=== PATIENT | male | born 1960 | race Caucasian/White ===

== ENCOUNTER 2016-12-16 12:43 | Emergency (ER) | payer SELFPAY ==
[~2016-12-16] VITALS: Ht 180.3 cm; Wt 59.0 kg
[~2016-12-16 12:43] MED LIST: VIST25CA PO
[2016-12-16 12:45] VITALS: BP 140/72; PULSE 120; RESP 24; TEMP 99.6; O2SAT 85
[2016-12-16 12:49] VITALS: BP 154/99; PULSE 120; RESP 20; TEMP 99.1; O2SAT 90
[2016-12-16 12:58] VITALS: BP 154/99; PULSE 111; RESP 18; O2SAT 91
[2016-12-16] MEDS ORDERED: SODIUM CHLOR 0.9% 1000 ML INJ 1,000 ML IV ONE (13:00)
[2016-12-16] MEDS ORDERED: RESP: ALBUTEROL 2.5 MG/IPRATROPIUM 0.5 MG NEB (SCH) NEB ONE (13:00)
[2016-12-16 13:11] LABS: AUTOMATED NEUTROPHIL # 20.7 TH/MM3 (1.8-7.7); BASOPHIL # 0.1 TH/MM3 (0-0.2); BASOPHIL % 0.3 % (0.0-2.0); HEMATOCRIT 40.4 % (39.0-51.0); HEMO FLAGS DIFF FINAL; LYMPH % 14.1 % (9.0-44.0); LYMPHOCYTE # 3.6 TH/MM3 (1.0-4.8); MEAN CELL VOLUME 92.7 FL (80.0-100.0); MEAN CORPUSCULAR HEMOGLOBIN 30.8 PG (27.0-34.0); MEAN CORPUSCULAR HGB CONC 33.2 % (32.0-36.0); MONO % 5.7 % (0.0-8.0); NEUT % 79.9 % (16.0-70.0); PLATELET COUNT 366 TH/MM3 (150-450); RED BLOOD COUNT 4.36 MIL/MM3 (4.50-5.90); RED CELL DISTRIBUTION WIDTH 13.9 % (11.6-17.2); WHITE BLOOD COUNT 25.9 TH/MM3 (4.0-11.0)
--- NOTE | 2016-12-16 13:30 | PD ---
HPI Chief Complaint: Cold / Flu Symptoms Time Seen by Provider: 12:55 Travel History International Travel<30 days: No Contact w/Intl Traveler<30days: No Traveled to known affect area: No History of Present Illness HPI Is a 56-year-old man who presents to the emergency department complaining of shortness of breath and cough. He reports that over the past 5-6 days she's had increasing shortness of breath. She also had cough productive of white phlegm. He's been having night sweats during that time as well. No nausea or vomiting. No chest pain. No shortness of breath. His a history of a 30+ pack year history of smoking but a history of heart or lung disease. He does have high blood pressure was told the past isn't enlarged heart. Prior to the 5 or 6 days ago he was feeling completely well. He has had unintentional weight loss of 10 pounds or so over the past couple months. History Past Medical History Narrative Medical Hypertension Enlarged heart Tobacco use, 30+ pack years Social History Alcohol Use: Yes Tobacco Use: Yes Allergies-Medications (Allergen,Severity, Reaction): Coded Allergies: No Known Allergies (Unverified , 08/25/15) Reported Meds & Prescriptions Reported Meds & Active Scripts Active Azithromycin 250 Mg Tab 250 Mg PO DAILY 4 Days Amoxicillin 500 Mg Tab 1,000 Mg PO TID 10 Days Vistaril (Hydroxyzine Pamoate) 25 Mg Cap 25 Mg PO Q6H PRN Review of Systems Except as stated in HPI: all other systems reviewed are Neg Physical Exam Narrative GENERAL: Well-appearing 56-year-old man, no acute distress. Thin built. SKIN: Focused skin assessment warm/dry. NECK: Trachea midline. No JVD. CARDIOVASCULAR: Regular rate and rhythm. No murmur appreciated. RESPIRATORY: No accessory muscle use. Clear to auscultation. Breath sounds equal bilaterally. GASTROINTESTINAL: Abdomen soft, non-tender, nondistended. Hepatic and splenic margins not palpable. MUSCULOSKELETAL: No obvious deformities. Decreased muscle bulk. No edema. NEUROLOGICAL: Awake and alert. No obvious cranial nerve deficits. Motor grossly within normal limits. Normal speech. PSYCHIATRIC: Appropriate mood and affect; insight and judgment normal. Data Data Last Documented VS Vital Signs Date Time Temp Pulse Resp B/P Pulse Ox O2 Delivery O2 Flow Rate FiO2 12/16/16 13:47 102 18 124/72 90 Nasal Cannula 2 12/16/16 12:49 99.1 Orders Complete Blood Count With Diff (12/16/16 12:55) Comprehensive Metabolic Panel (12/16/16 12:55) Chest, Pa & Lat (12/16/16 ) D-Dimer (12/16/16 12:55) Iv Access Insert/Monitor (12/16/16 12:55) Influenzae A/B Antigen (12/16/16 12:55) Sodium Chlor 0.9% 1000 Ml Inj (Ns 1000 M (12/16/16 13:00) Albuterol-Ipratropium Neb (Duoneb Neb) (12/16/16 13:00) Ct Pulmonary Angiogram (12/16/16 ) Iohexol 350 Inj (Omnipaque 350 Inj) (12/16/16 14:43) Levofloxacin 750 Mg Premix Inj (Levaquin (12/16/16 15:15) Ceftriaxone Inj (Rocephin Inj) (12/16/16 15:30) Azithromycin (Zithromax) (12/16/16 15:30) Labs Laboratory Tests Test 12/16/16 13:00 White Blood Count 25.9 TH/MM3 Red Blood Count 4.36 MIL/MM3 Hemoglobin 13.4 GM/DL Hematocrit 40.4 % Mean Corpuscular Volume 92.7 FL Mean Corpuscular Hemoglobin 30.8 PG Mean Corpuscular Hemoglobin 33.2 % Concent Red Cell Distribution Width 13.9 % Platelet Count 366 TH/MM3 Mean Platelet Volume 8.9 FL Neutrophils (%) (Auto) 79.9 % Lymphocytes (%) (Auto) 14.1 % Monocytes (%) (Auto) 5.7 % Eosinophils (%) (Auto) 0.0 % Basophils (%) (Auto) 0.3 % Neutrophils # (Auto) 20.7 TH/MM3 Lymphocytes # (Auto) 3.6 TH/MM3 Monocytes # (Auto) 1.5 TH/MM3 Eosinophils # (Auto) 0.0 TH/MM3 Basophils # (Auto) 0.1 TH/MM3 CBC Comment DIFF FINAL Differential Comment D-Dimer Quantitative (PE/DVT) 1.01 MG/L FEU Sodium Level 133 MEQ/L Potassium Level 3.7 MEQ/L Chloride Level 95 MEQ/L Carbon Dioxide Level 29.7 MEQ/L Anion Gap 8 MEQ/L Blood Urea Nitrogen 8 MG/DL Creatinine 0.56 MG/DL Estimat Glomerular Filtration 152 ML/MIN Rate Random Glucose 152 MG/DL Calcium Level 8.7 MG/DL Total Bilirubin 0.3 MG/DL Aspartate Amino Transf 39 U/L (AST/SGOT) Alanine Aminotransferase 34 U/L (ALT/SGPT) Alkaline Phosphatase 123 U/L Total Protein 7.2 GM/DL Albumin 2.5 GM/DL [facility] [place] Medical Decision Making Medical Screen Exam Complete: Yes Emergency Medical Condition: Yes Interpretation(s) LABS: CBC remarkable for white count 25,000 CMP unremarkable. D-dimer1.01 Influenza negative Chest x-ray: One changes characteristic of emphysema multifocal patchy and nodular opacity in the right upper lobe, pneumonia versus malignancy CT pulmonary angiogram: No PE. Mild emphysema. Demonstrates patchy airspace consolidation in the right upper lobe, relatively diffuse tree about opacity in the lower lung zones, possible aspiration. Differential Diagnosis Pneumonia, emphysema, malignancy, heart failure, other Narrative Course Medical decision making 56-year-old man with cough cold symptoms, shortness of breath, ongoing for the past 6 days. Extensive smoking history. We'll check labs, x-ray, reassess. X-ray suggestive right upper lobe opacity, CT scan suggest pneumonia more likely than malignancy. Discussed risk of malignancy with the patient. He is given a follow-up imaging to ensure resolution. I can't identify any TB risk factors. We'll recommend close outpatient follow-up. They'll hear any wheezing or evidence of COPD exacerbation. He has no history of COPD although he certainly has emphysematous changes on his imaging. Again recommend outpatient follow-up. Diagnosis Primary Impression: Pneumonia Additional Instructions: Take Levaquin as prescribed. Stop smoking. Follow-up with your primary doctor for repeat chest imaging in 1-2 months for repeat evaluation to ensure resolution. Med/Other Pt SpecificInfo: Prescription(s) given Scripts Azithromycin 250 Mg Adh765 Mg PO DAILY 4 Days Ref 0 Prov:Tavon Tejeda MD 12/16/16 Amoxicillin 500 Mg Tab1,000 Mg PO TID 10 Days Ref 0 Prov:Tavon Tejeda MD 12/16/16 Disposition: 01 DISCHARGE HOME Condition: Stable Tavon Tejeda MD December 16, 2016 13:30
[2016-12-16 13:39] LABS: ANION GAP 8 MEQ/L (5-15); AST (GOT) 39 U/L (15-37); BICARBONATE 29.7 MEQ/L (21.0-32.0); BLOOD UREA NITROGEN 8 MG/DL (7-18); CHLORIDE 95 MEQ/L (98-107); GLOMERULAR FILTRATION RATE 152 ML/MIN (>89); POTASSIUM 3.7 MEQ/L (3.5-5.1); SODIUM (NA) 133 MEQ/L (136-145)
[2016-12-16 13:42] LABS: ALKALINE PHOSPHATASE 123 U/L (45-117); ALT (GPT) 34 U/L (12-78); TOTAL BILIRUBIN ADULT 0.3 MG/DL (0.2-1.0)
[2016-12-16 13:47] VITALS: BP 124/72; PULSE 102; RESP 18; O2SAT 90
--- NOTE | 2016-12-16 13:57 | RADRPT ---
EXAM DATE/TIME: 12/16/2016 13:39 [facility] COMPARISON: No previous studies available for comparison. INDICATIONS : Short of breath today, smoker, no chest surgery MEDICAL HISTORY : None. SURGICAL HISTORY : None. ENCOUNTER: Initial ACUITY: 1 day PAIN SCORE: 0/10 LOCATION: Bilateral chest FINDINGS: Frontal and lateral views the chest demonstrate a normal-sized cardiac silhouette. Lungs are hyperinf lated with enlarged retrosternal airspace. There is patchy somewhat nodular opacity in the right uppe r lobe. No pleural effusion or pneumothorax is identified. Bones and soft tissues demonstrate no acut e finding. CONCLUSION: Lung changes characteristic of emphysema with multifocal patchy and nodular opacity in the right uppe r lobe. This appearance is nonspecific. In the appropriate clinical setting this could represent an infectious process/pneumonia. However, malignancy is not excluded. Suggest correlation with the clini wanda history and recommend followup imaging to confirm resolution if infection is suspected. Zach Vegas MD on December 16, 2016 at 13:54 Board Certified Radiologist. This report was verified electronically.
[2016-12-16] MEDS ORDERED: IOHEXOL 350 MG/ML 10 ML VIAL (for RAD DIAG) IV ONE (14:43)
--- NOTE | 2016-12-16 14:57 | RADRPT ---
EXAM DATE/TIME: 12/16/2016 14:33 [facility] COMPARISON: CHEST PA & LAT, December 16, 2016, 13:39. INDICATIONS : Cough and dyspnea for 1 week IV CONTRAST: 75 cc Omnipaque 350 (iohexol) IV RADIATION DOSE: 19.52 CTDIvol (mGy) MEDICAL HISTORY : Hypertension. SURGICAL HISTORY : None. ENCOUNTER: Initial ACUITY: 1 week PAIN SCALE: 0/10 LOCATION: chest TECHNIQUE: Volumetric scanning of the chest was performed using a pulmonary embolism protocol MIP images were re constructed. Using automated exposure control and adjustment of the mA and/or kV according to patien t size, radiation dose was kept as low as reasonably achievable to obtain optimal diagnostic quality images. FINDINGS: PULMONARY ARTERIES: No filling defects are seen in the pulmonary arteries through the segmental level. LUNGS: There is mild centrilobular emphysema. Dense patchy airspace consolidation is present in the right up per lobe primarily in the posterior segment. Throughout the right middle lobe and the lower lung zone s bilaterally there are multiple tiny nodules that mostly have a tree in bud appearance. There is a s mall amount of material within the lower lobe bronchioles and there is mild bronchiolectasis. No pneu mothorax is present. PLEURAE: There is no pleural thickening or pleural effusion. MEDIASTINUM: Heart and great vessels demonstrate no acute finding. There is mediastinal and right hilar lymphadeno best with the largest mediastinal lymph node in 8 precarinal location measuring 15 mm in short axis diameter and a right hilar lymph node measuring approximately 2.5 x 1.7 cm. MUSCULOSKELETAL: There are degenerative changes of the thoracic spine. MISCELLANEOUS: The visualized upper abdominal organs demonstrate no acute abnormality. CONCLUSION: 1. No PE is identified. 2. Mild emphysema with a dense patchy airspace consolidation in the posterior segment of the right up per lobe. There additionally is a relatively diffuse tree in bud opacity in the lower lung zones bila terally with material in the lower lobe bronchioles. These findings raise suspicion for aspiration as the cause. Alternatively, other infectious or inflammatory processes could give this appearance. Alt [place] the process is not typical in appearance for a malignant process, recommend followup imaging to confirm resolution. 3. There are enlarged mediastinal and right hilar lymph nodes. These may be reactive due to the right upper lobe process. Again, recommend followup chest CT to confirm resolution. Zach Vegas MD on December 16, 2016 at 14:50 Board Certified Radiologist. This report was verified electronically.
[2016-12-16] MEDS ORDERED: LEVOFLOXACIN 750 MG PREMIX INJ 150 ML IV ONE (15:15)
[2016-12-16] MEDS ORDERED: AMOX500T PO (15:21)
[2016-12-16] MEDS ORDERED: AZIT250T3 PO (15:21)
[2016-12-16] MEDS ORDERED: AZITHROMYCIN 250 MG TAB PO ONE (15:30)
[2016-12-16] MEDS ORDERED: cefTRIAXone INJ 1,000 MG in SODIUM CHLORIDE 0.9% INJ 100 ML IV ONE (15:30)
[2016-12-16 15:34] VITALS: BP 123/62; PULSE 92; RESP 16; O2SAT 92
--- NOTE | 2016-12-17 08:26 | EKG ---
Date Performed: 12/16/2016 Time Performed: 12:56:57 PTAGE: 56 years EKG: SINUS TACHYCARDIA ABNORMAL ECG PREVIOUS TRACING : 10/13/1997 06.41 Compared to previous tracing, heart rate has increased. DOCTOR: Justo Garcia Interpretating Date/Time 12/17/2016 08:26:00
== END 2016-12-16 16:22 | disposition home or self-care (01) ==
LOC: NEPC 12:43
DX: J18.9 Pneumonia, unspecified organism (principal); R05 Cough; I10 Essential (primary) hypertension; Z72.0 Tobacco use; R94.31 Abnormal electrocardiogram [ECG] [EKG]; R61 Generalized hyperhidrosis
CPT/HCPCS: 71020; 71275; 80053; 85025; 85379; 87804; 93005; 94664; 96365; 99285; J0696; J7030; Q9967